=== PATIENT | male | born 1935 | race Caucasian/White ===

== ENCOUNTER 2017-07-10 15:00 | Outpatient (RCR) ==
[2017-06-11 15:04] VITALS: BMI 36.7
--- NOTE | 2017-06-18 15:55 | RS.OPPTEV2 ---
Date of Note: 06/18/17 Visit #: 1 Date of Evaluation: 06/18/17 Payer Source: MEDICARE Surgery Performed?: Yes (R TKR) Procedure Performed: RTKR Date of Procedure: 06/08/17 Treatment Diagnosis: OA, gait difficulty History of Condition/Mechanism of Injury:: pt with long history of OA with knee pain. Prior Level of Function.....Patient was independent with: ADL's, Ambulation/ Mobility, Community Integration/Access Functional Limitations: Sleep, ADL's, Sitting, Standing, Squatting, Ambulation, Community Access/Integration Current Subjective/complaints:: pt states he is having a really bad day today. pt c/o having to walk so far into dept. reports she thinks pt "overdid" yesterday amb in the home. Treatment Side (optional): Right *Precautions: fall precautions, wounds on calf of R LE Medical History Medical History: Arthritis, Cancer (prostate) Medical History Comments:: R TKA, Kidney stones x 2, prostate CA, Radiation therapy, Prostatectomy, cholecystectomy, hernia repair, ventral hernia, gall bladder removed. Surgical History: Knee Replacement Surgical History Comments:: prostate sx, foot sx, hernia repair Smoking Status: Current some day smoker Hx Home Medications: tylenol, aspirin, iron, colace Patient's Goals: amb with no AD and with no pain Pain Assessment - Pain Description Pain Location: R knee Pain Description: Sharp, Aching Current Pain Intensity: 5/10 Worst Pain Intensity: 7/10 Other Comments regarding Pain:: pt states the tylenol may not be helping enough , advised pt to discuss with MD. Functional Outcome Measure LE Functional Scale: 13 - G Codes & Severity Modifier G Codes & Modifier: mobility current CL. mobility goal CI Source of G Code score: LE functional scale and objective findings. Observation - Observation Inspection: pt with incision R knee 14 cm intact no exudate, no erythema. 3 areas on post calf RLE 1 area approx 2 cm open 100% pink viable tissue. 2 areas intact blisters approx 2 cm Posture: Forward Head, Rounded Shoulders Girth Measurement Lower: R knee 45cm. L knee 37 cm Gait - Gait Pattern General Gait Pattern Observation: Antalgic Gait, Crouched Gait, Short Stance Time (R), Decrease Stride Lngth (R), Decrease Stride Lngth (L) Gait Comments: pt amb with antalgic gait with flexed posture and decreased heel strike/toe off gait pattern. General Range of Motion: BUE WFL's. LLE WFL's Muscle Strength: BUE 5/5. LLE 5/5 Knee ROM: Left WFL's Knee Muscle Strength: Left WFL's - Right Knee ROM Right Knee Extension: -10 Right Knee Flexion: 78 Knee ROM Limitations: Soft Tissue Tightness, Pain - Right Knee Strength Right Knee Extension: 3- Fair- Right Knee Flexion: 3- Fair- Sensation - Sensation Right Upper Extremity: Intact/Normal Left Upper Extremity: Intact/Normal Right Lower Extremity: Intact/Normal Left Lower Extremity: Intact/Normal Balance - Sitting Balance Static Sitting Balance: Normal Dynamic Sitting Balance: Good - Standing Balance Static Standing Balance: Good Dynamic Standing Balance: Fair - Comments Balance Assessment Comments: TUG 42 secs - Heat/Cryotherapy Treatment: Cryotherapy Comments:: R knee Interventions - Exercise/Activities/Manual Therapy Exercises/Activities: pt performed AP, QS, SAQ, HS, hip abd/add, LAQ, x 10 reps. SLR x 5 reps Total minutes of Exercise: 15 Manual Therapy: n/a HOME EXERCISE PROGRAM: pt given written HEP and instructed on AP, LAQ, SAQ, QS, HS, hip abd/add, SLR. - Charges Total Direct Minutes: 52 Total Treatment Time: 52 Procedures billed for this date of service:: flip cavazos and ex Assessment Assessment: pt presents with edema RLE, decreased ROM, strength, balance as well as gait ability s/p RTKR. Patient Education: Education of diagnosis, Home Exercise Program, Activity Modification, Education of Plan of Care Rehab Potential: Good Short Term Goals Goal #1: R knee ROM AAROM flex 90 ext -8 Goal to be met by: 07/09/17 Goal #2: pt amb with rwx in dept with improved heel strike/toe off and no LOB Goal to be met by: 07/09/17 Goal #3: pt rate pain R knee <5/10 with activity Goal to be met by: 07/09/17 Holter Technician Goals Goal #1: Decreased edema RLE equal to LLE Goal to be met by: 07/30/17 Goal #2: ROM R knee flex 100 ext 0 AROM Goal to be met by: 07/30/17 Goal #3: Increased strength RLE 4 to 4+/5 and independent with HEP Goal to be met by: 07/30/17 Goal #4: pt amb community distances with least AD with no LOB and improved sequence Goal to be met by: 07/30/17 Plan - Treatment to be Provided Procedures: Therapeutic Exercises, Therapeutic Activity, Gait Training, Neuromuscular Rehab, Manual Therapy, Patient Education Modalities: Electrical Stimulation, Cryotherapy - Treatment Plan Frequency: 3 X week (encouraged pt to come 3x a week atleast for 2 weeks and then decrease to 2x however pt only wants to come back 1 more time this week.) Duration: 6 weeks ORDER # VISITS AND/OR THROUGH DATE: 07/30/17 - Treatment Code (1) Osteoarthritis Code(s): M19.90 - UNSPECIFIED OSTEOARTHRITIS, UNSPECIFIED SITE Qualifiers: Osteoarthritis location: knee Osteoarthritis type: primary Laterality: right Qualified Code(s): M17.11 - Unilateral primary osteoarthritis, right knee (2) Gait difficulty Code(s): R26.9 - UNSPECIFIED ABNORMALITIES OF GAIT AND MOBILITY (3) Aftercare following knee joint replacement surgery Code(s): Z47.1 - AFTERCARE FOLLOWING JOINT REPLACEMENT SURGERY; Z96.659 - PRESENCE OF UNSPECIFIED ARTIFICIAL KNEE JOINT Qualifiers: Laterality: right Qualified Code(s): Z47.1 - Aftercare following joint replacement surgery; Z96.651 - Presence of right artificial knee joint; Z96.651 - Presence of right artificial knee joint
--- NOTE | 2017-06-21 16:32 | RS.OPPTDN ---
Subjective Date of Note: 06/21/17 Visit #: 2 Date of Evaluation: 06/18/17 Payer Source: MEDICARE Treatment Diagnosis: OA, gait difficulty Current Subjective/complaints:: Patient reports right knee stiffness. States he is tired following exercise but feels he did well in therapy today. *Precautions: fall precautions, wounds on calf of R LE Pain Assessment - Pain Description Pain Location: R knee Pain Description: Sharp, Aching Current Pain Intensity: 4-5/10 - Treatment Modality: Electrical Stim Unattended Parameters/Method Applied: [id number] HVGC to 270p.v. with 4 large pads, cross current, with CP to the right knee joint. Patient Position: Supine - Heat/Cryotherapy Treatment: Cryotherapy ([id number] with Estim ) Interventions - Exercise/Activities/Manual Therapy Exercises/Activities: 30mins with rest breaks. In sitting, AP, LAQ, and hip flexion. In supine, multiple reps of QS and HS sets. SAQ, isometric hip abd, and isometric ankle inversion with ball. Green theraband for resistive ankle df. Assisted heel slides. Passive flexion and extension of right knee joint, and hamstring stretching. Total minutes of Exercise: 30mins Manual Therapy: n/a HOME EXERCISE PROGRAM: pt given written HEP and instructed on AP, LAQ, SAQ, QS, HS, hip abd/add, SLR. - Objective Findings Observations,measurements,etc.: Patient taken to car in w/c and assisted with transfer. - Charges Total Direct Minutes: 30mins Total Treatment Time: 55mins Procedures billed for this date of service:: EX2, CP, Estim unattended Assessment: Patient able to progress with ROM and strengthening exercise. Patient Education: Home Exercise Program, Home Safety, Activity Modification Patient demonstrates compliance with HEP?: Yes Short Term Goals Goal #1: R knee ROM AAROM flex 90 ext -8 Goal to be met by: 07/09/17 Progress towards Goal:: Progressing Goal #2: pt amb with rwx in dept with improved heel strike/toe off and no LOB Goal to be met by: 07/09/17 Goal #3: pt rate pain R knee <5/10 with activity Goal to be met by: 07/09/17 Progress towards Goal:: Progressing Control Valve Technician Goals Goal #1: Decreased edema RLE equal to LLE Goal to be met by: 07/30/17 Goal #2: ROM R knee flex 100 ext 0 AROM Goal to be met by: 07/30/17 Goal #3: Increased strength RLE 4 to 4+/5 and independent with HEP Goal to be met by: 07/30/17 Goal #4: pt amb community distances with least AD with no LOB and improved sequence Goal to be met by: 07/30/17 Plan PLAN OF CARE EXPIRES ON:: 07/30/17 ORDER # VISITS AND/OR THROUGH DATE: 07/30/17 PLAN: Progress ROM and strengthening exercise to improve patients functional activity level.
--- NOTE | 2017-06-26 16:34 | RS.OPPTDN ---
Subjective Date of Note: 06/26/17 Visit #: 3 Date of Evaluation: 06/18/17 Payer Source: MEDICARE Treatment Diagnosis: OA, gait difficulty Current Subjective/complaints:: Patient reports he is walking more with a cane in his home. States he is working on HEP, but swelling continues to be a problem. States pain is much better and he only take Ibuprofen for pain. *Precautions: fall precautions, wounds on calf of R LE Pain Assessment - Pain Description Pain Location: R knee Pain Description: Sharp, Aching Current Pain Intensity: 1-2/10 Other Comments regarding Pain:: Ache in the right knee and sharp pain in the upper lateral thigh. - Treatment Modality: Electrical Stim Unattended Parameters/Method Applied: [id number] HVGC to 250p.v. with 4 large pads, cross current, to the right knee joint following EX. Patient Position: Supine - Heat/Cryotherapy Treatment: Cryotherapy ([id number] with Estim ) Interventions - Exercise/Activities/Manual Therapy Exercises/Activities: 30mins. In sitting, AP and isometric hip add with ball. LAQ with 2#. In supine, PROM of the right knee and ankle. QS and HS sets. SAQ 2#, isometric hip abd, and isometric ankle inversion with ball. Green theraband for resistive ankle df. Red theraband for ham curls. Assisted heel slides. Passive flexion and extension of right knee joint, and hamstring stretching. DIscussion and demonstration of modified direction massage to reduce swelling. Total minutes of Exercise: 30mins Manual Therapy: n/a HOME EXERCISE PROGRAM: pt given written HEP and instructed on AP, LAQ, SAQ, QS, HS, hip abd/add, SLR. - Objective Findings Observations,measurements,etc.: Passive right knee flexion to 90 degrees and extension to approx -5 degrees. - Charges Total Direct Minutes: 30mins Total Treatment Time: 50mins Procedures billed for this date of service:: EX2, CP, Estim unattended Assessment: Patient progressing well with ROM of the right knee and is able to perform a SLR without assist. Patient Education: Body/Joint mechanics, Home Exercise Program, Home Safety Comments: Discussion of safety with ambulation with cane. Patient demonstrates compliance with HEP?: Yes Short Term Goals Goal #1: R knee ROM AAROM flex 90 ext -8 Goal to be met by: 07/09/17 Progress towards Goal:: Progressing Goal #2: pt amb with rwx in dept with improved heel strike/toe off and no LOB Goal to be met by: 07/09/17 Progress towards Goal:: Progressing Goal #3: pt rate pain R knee <5/10 with activity Goal to be met by: 07/09/17 Progress towards Goal:: Met Diesel Dragline Operator Goals Goal #1: Decreased edema RLE equal to LLE Goal to be met by: 07/30/17 Goal #2: ROM R knee flex 100 ext 0 AROM Goal to be met by: 07/30/17 Goal #3: Increased strength RLE 4 to 4+/5 and independent with HEP Goal to be met by: 07/30/17 Goal #4: pt amb community distances with least AD with no LOB and improved sequence Goal to be met by: 07/30/17 Plan PLAN OF CARE EXPIRES ON:: 07/30/17 ORDER # VISITS AND/OR THROUGH DATE: 07/30/17 PLAN: Continue with modalites and exercise to reduce swelling and increase ROM of the right knee.
--- NOTE | 2017-06-28 16:02 | RS.OPPTDN ---
Subjective Date of Note: 06/28/17 Visit #: 4 Date of Evaluation: 06/18/17 Payer Source: MEDICARE Treatment Diagnosis: OA, gait difficulty Current Subjective/complaints:: Patient reports swelling is better since last session. States EX, CP, and Estim seem to have helped with right LE swelling. *Precautions: fall precautions, wounds on calf of R LE Pain Assessment - Pain Description Pain Location: R knee Pain Description: Sharp, Aching Current Pain Intensity: 0/10 at rest, 4-5/10 with EX Other Comments regarding Pain:: Reports he only take Tylenol prior to PT. - Treatment Modality: Electrical Stim Unattended Parameters/Method Applied: [id number] HVGC to 190p.v. with 4 large pads, crossed current, to the right knee joint with CP following EX. Patient Position: Supine - Heat/Cryotherapy Treatment: Cryotherapy ([id number] with Estim) Interventions - Exercise/Activities/Manual Therapy Exercises/Activities: 30mins. In sitting, AP and isometric hip add with ball. LAQ with 2#. In supine, PROM of the right knee and ankle. QS and HS sets. SAQ 2#, isometric hip abd, and isometric ankle inversion with ball. Green theraband for resistive ankle df. Red theraband for ham curls. Assisted heel slides. Passive flexion and extension of right knee joint, and hamstring stretching. DIscussion and demonstration of modified direction massage to reduce swelling. Manual Therapy: n/a HOME EXERCISE PROGRAM: pt given written HEP and instructed on AP, LAQ, SAQ, QS, HS, hip abd/add, SLR. - Objective Findings Observations,measurements,etc.: Passive right knee flexion to 95 degrees. - Charges Total Direct Minutes: 30mins Total Treatment Time: 50mins Procedures billed for this date of service:: EX2, CP, Estim unattended Assessment: Patients right LE swelling improving as well as ROM of the right knee. Patient Education: Home Exercise Program, Home Safety, Activity Modification Patient demonstrates compliance with HEP?: Yes Short Term Goals Goal #1: R knee ROM AAROM flex 90 ext -8 Goal to be met by: 07/09/17 Progress towards Goal:: Met Goal #2: pt amb with rwx in dept with improved heel strike/toe off and no LOB Goal to be met by: 07/09/17 Progress towards Goal:: Progressing Goal #3: pt rate pain R knee <5/10 with activity Goal to be met by: 07/09/17 Progress towards Goal:: Met Mechanical Engineering Advisor Goals Goal #1: Decreased edema RLE equal to LLE Goal to be met by: 07/30/17 Goal #2: ROM R knee flex 100 ext 0 AROM Goal to be met by: 07/30/17 Progress towards goal: Progressing Goal #3: Increased strength RLE 4 to 4+/5 and independent with HEP Goal to be met by: 07/30/17 Goal #4: pt amb community distances with least AD with no LOB and improved sequence Goal to be met by: 07/30/17 Plan PLAN OF CARE EXPIRES ON:: 07/30/17 ORDER # VISITS AND/OR THROUGH DATE: 07/30/17 PLAN: Progress strength and ROM to improve patients gait and increase his functional activity level.
--- NOTE | 2017-07-02 16:27 | RS.OPPTDN ---
Subjective Date of Note: 07/02/17 Visit #: 5 Date of Evaluation: 06/18/17 Payer Source: MEDICARE Treatment Diagnosis: OA, gait difficulty Current Subjective/complaints:: Patient reports swelling in the right LE is better today. He also reports he walked into hospital with cane and only used walker for safety at [employer] yesterday. *Precautions: fall precautions, wounds on calf of R LE Pain Assessment - Pain Description Pain Location: right knee Pain Description: Tightness, Aching Current Pain Intensity: mild Interventions - Exercise/Activities/Manual Therapy Exercises/Activities: In sitting, AP and isometric hip add with ball. LAQ and hip flexion, increased to 3#, 2s/10reps each. In supine, PROM of the right knee and ankle. Hamstring stretching. QS and HS sets. Passive knee extension with ankle on bolster. SAQ increased to 3# and isometric hip abd. Blue theraband for resistive ankle df. Increased to green theraband for ham curls 3s/10reps. Assisted heel slides. Ended with additional passive flexion and extension of right knee joint, and hamstring stretching. In sitting, blue theraband for short ham curls. Isometric knee flexion and extension, multiple reps. Patient assisted onto leg press and performs at 30#, 4s/10reps. Then assisted to stationary bike for 3mins forward revolutions, then 1 min of full but assisted retro revolutions. Patient demos good safety awareness when ambulating with cane. Total minutes of Exercise: 45mins Manual Therapy: n/a HOME EXERCISE PROGRAM: pt given written HEP and instructed on AP, LAQ, SAQ, QS, HS, hip abd/add, SLR. - Objective Findings Observations,measurements,etc.: Active assisted right knee flexion to 104 degrees. - Charges Total Direct Minutes: 45mins Total Treatment Time: 45mins Procedures billed for this date of service:: EX3 Assessment: Patient progressing well with ROM and reduction in swelling of the right LE. Patient Education: Home Safety, Activity Modification Short Term Goals Goal #1: R knee ROM AAROM flex 90 ext -8 Goal to be met by: 07/09/17 Progress towards Goal:: Met Goal #2: pt amb with rwx in dept with improved heel strike/toe off and no LOB Goal to be met by: 07/09/17 Progress towards Goal:: Progressing Goal #3: pt rate pain R knee <5/10 with activity Goal to be met by: 07/09/17 Progress towards Goal:: Met Shorer Goals Goal #1: Decreased edema RLE equal to LLE Goal to be met by: 07/30/17 Progress towards goal: Progressing Goal #2: ROM R knee flex 100 ext 0 AROM Goal to be met by: 07/30/17 Progress towards goal: Progressing Goal #3: Increased strength RLE 4 to 4+/5 and independent with HEP Goal to be met by: 07/30/17 Goal #4: pt amb community distances with least AD with no LOB and improved sequence Goal to be met by: 07/30/17 Progress towards goal: Progressing Plan PLAN OF CARE EXPIRES ON:: 07/30/17 ORDER # VISITS AND/OR THROUGH DATE: 07/30/17 PLAN: Progress with ROM and strengthening to increase patients safety and functional activity level.
--- NOTE | 2017-07-12 13:48 | RS.OPPTDN ---
Subjective Date of Note: 07/10/17 Visit #: 6 Date of Evaluation: 06/18/17 Payer Source: MEDICARE Treatment Diagnosis: OA, gait difficulty Current Subjective/complaints:: Patient reports he is progressing well. States he was able to walk around his home and take out trash this morning with no pain in the right knee. Reports tightness and some increased discomfort with ambulation and exercise this afternoon. States he is ready to stop therapy and will continue HEP. *Precautions: fall precautions, wounds on calf of R LE Pain Assessment - Pain Description Pain Location: right knee Current Pain Intensity: mild Interventions - Exercise/Activities/Manual Therapy Exercises/Activities: In sitting, AP and isometric knee flexion and extension. In supine, Isometric hip add with ball. SAQ increased to 4#, 3s/10reps each. PROM of the right knee and ankle. Hamstring stretching. QS and HS sets. Passive knee extension with ankle on bolster. Blue theraband for resistive ankle df. Increased to blue theraband for ham curls 3s/10reps and hip add and abd in hook- lying 2s/10reps each. Assisted heel slides. Ended with additional passive flexion and extension of right knee joint, and hamstring stretching. In sitting , blue theraband for short ham curls. Isometric knee flexion and extension, multiple reps. Patient demos good safety awareness when ambulating without cane today. Demonstration and discussion of need to perform passive extension 2-3 times per day. Total minutes of Exercise: 40mins Manual Therapy: n/a HOME EXERCISE PROGRAM: pt given written HEP and instructed on AP, LAQ, SAQ, QS, HS, hip abd/add, SLR. Passive extension hangs. - Objective Findings Observations,measurements,etc.: Active assisted right knee flexion to 112 degrees in supine, and passive flexion to 115 degrees. Patient demos -9 degrees extension actively. Lower Extremity Functional Scale 39/80 or 51.25% (was 13/ 80 on Eval) - Charges Total Direct Minutes: 40mins Total Treatment Time: 45mins Procedures billed for this date of service:: EX3 Assessment: Patient has progressed well and met 5 of 7 goals. He is performing most light to mod daily activities. He feels he is ready for discharge and will continue HEP. Patient Education: Body/Joint mechanics, Home Exercise Program, Home Safety, Activity Modification, Education of Plan of Care Patient demonstrates compliance with HEP?: Yes Short Term Goals Goal #1: R knee ROM AAROM flex 90 ext -8 Goal to be met by: 07/09/17 Progress towards Goal:: Met Goal #2: pt amb with rwx in dept with improved heel strike/toe off and no LOB Goal to be met by: 07/09/17 Progress towards Goal:: Met Goal #3: pt rate pain R knee <5/10 with activity Goal to be met by: 07/09/17 Progress towards Goal:: Met Longterm Goals Goal #1: Decreased edema RLE equal to LLE Goal to be met by: 07/30/17 Progress towards goal: Progressing Goal #2: ROM R knee flex 100 ext 0 AROM Goal to be met by: 07/30/17 Progress towards goal: Progressing Goal #3: Increased strength RLE 4 to 4+/5 and independent with HEP Goal to be met by: 07/30/17 Progress towards goal: Met Goal #4: pt amb community distances with least AD with no LOB and improved sequence Goal to be met by: 07/30/17 Progress towards goal: Met Plan PLAN OF CARE EXPIRES ON:: 07/30/17 ORDER # VISITS AND/OR THROUGH DATE: 07/30/17 PLAN: Discharge with HEP at patients request due to progress.
--- NOTE | 2017-07-13 08:58 | RS.OPPTDC ---
Date of Discharge: 07/10/17 Date of Evaluation: 06/18/17 Number of Visits: 6 Treatment Diagnosis: OA, gait difficulty Current Level of Function: pt amb independently without AD, independent with HEP , AROM R knee flex 112, PROM R knee flex 115, R knee ext -9. R knee flex and ext 4+/5. Current Complaints/Gains: pt reports he feels he has progressed well and cand continue HEP. pt reports he is doing light to mod activities at home and walking without cane. Functional Outcome Measure LE Functional Scale: 39 - G Codes & Severity Modifier G Codes & Modifier: mobility goal CI. mobility dc CK Source of G Code score: LE functional scale and functional activities Observation - Observation Posture: Forward Head, Rounded Shoulders Gait - Gait Pattern General Gait Pattern Observation: Antalgic Gait (slight antalgic gait without cane) General Range of Motion: R knee AROM flex 112, PROM R knee flex 115, R knee ext -9 Muscle Strength: R LE 4+/5 Interventions - Exercise/Activities/Manual Therapy Exercises/Activities: n/a Manual Therapy: n/a HOME EXERCISE PROGRAM: pt given written HEP and instructed on AP, LAQ, SAQ, QS, HS, hip abd/add, SLR. Passive extension hangs. - Charges Total Direct Minutes: n/a Total Treatment Time: n/a Procedures billed for this date of service:: n/a Assessment Assessment: pt has made significant improvements since eval. pt has improved with ROM, strength and gait ability. pt has met 5 of 7 goals. Patient Education: Education of diagnosis, Home Exercise Program, Home Safety, Education of Plan of Care Rehab Potential: Good Short Term Goals Goal #1: R knee ROM AAROM flex 90 ext -8 Goal to be met by: 07/09/17 Progress towards Goal:: Met Goal #2: pt amb with rwx in dept with improved heel strike/toe off and no LOB Goal to be met by: 07/09/17 Progress towards Goal:: Met Goal #3: pt rate pain R knee <5/10 with activity Goal to be met by: 07/09/17 Progress towards Goal:: Met Mcc Goals Goal #1: Decreased edema RLE equal to LLE Goal to be met by: 07/30/17 Progress towards goal: Progressing Goal #2: ROM R knee flex 100 ext 0 AROM Goal to be met by: 07/30/17 Progress towards goal: Partially Met Goal #3: Increased strength RLE 4 to 4+/5 and independent with HEP Goal to be met by: 07/30/17 Progress towards goal: Met Goal #4: pt amb community distances with least AD with no LOB and improved sequence Goal to be met by: 07/30/17 Progress towards goal: Met Plan Reason for Discharge:: pt request due to independent with HEP
== END 2017-07-12 ==
PROVIDERS: ATTEND Family Medicine
DX: R26.9 Unspecified abnormalities of gait and mobility (principal)